=== PATIENT | male | born 1990 | race Caucasian/White ===

== ENCOUNTER 2019-01-18 10:31 | Emergency (ER) | payer MEDICAID, SELFPAY ==
[2019-01-18 10:36] VITALS: BP 129/80; PULSE 96; RESP 16; TEMP 36.7; O2SAT 96
--- NOTE | 2019-01-18 10:57 | DI.US_ITS ---
SYMPTOMS/DIAGNOSIS: CALF PAIN, LONG CAR RIDE RECENTLY RIGHT LOWER EXTREMITY ULTRASOUND: The deep veins of the right lower extremity were evaluated sonographically. They show normal compression, augmentation and color flow. There is no evidence of deep venous thrombus in the right lower extremity. The saphenofemoral joint appears unremarkable. The soft tissues of the calf are unremarkable. IMPRESSION: No evidence of a right lower extremity deep venous.
[2019-01-18 11:12] VITALS: PULSE 87; RESP 13
[2019-01-18 11:15] VITALS: BP 122/81; PULSE 86; PULSE 88; RESP 20
[2019-01-18 11:27] LABS: Abs Immature Grans 0.01 k/cumm (0.0-0.09); Absolute Basophil Count 0.02 k/cumm (0.0-0.2); Absolute Eosinophil Count 0.19 k/cumm (0.0-0.7); Absolute Lymphocyte Count 1.74 k/cumm (1.2-3.4); Absolute Monocyte Count 0.66 k/cumm (0.11-0.7); Absolute Neutrophil Count 2.72 k/cumm (1.2-6.7); Basophils % 0.4; Eosinophils % 3.6; HCT 45.7 % (40.0-50.0); HGB 15.7 g/dL (13.5-17.5); Immature Grans % 0.2; Lymphocytes % 32.6; Mean Corp. HGB Concentration 34.4 g/dL (32.0-36.0); Mean Corpuscular Hemoglobin 28.9 pg (27.0-33.0); Mean Corpuscular Volume 84.2 fL (80-95); Mean Platelet Volume 10.5 fL (8.0-11.0); Monocytes % 12.4; Neutrophils % 50.8; Platelet Count 219 x1000/uL (130-400); RBC 5.43 m/cumm (4.50-6.00); RBC Distribution Width 13.5 % (11.8-14.1); White Blood Cell Count 5.34 k/cumm (4.4-10.8)
[2019-01-18] MEDS: Ketorolac 30 MG/ML VIAL IVP (11:30)
[2019-01-18 11:43] LABS: ALT 40 U/L (12-78); AST 31 U/L (15-37); Albumin 3.8 g/dL (3.4-5.0); Alkaline Phosphatase 68 U/L (46-116); Anion Gap 7.8 mmol/L (3-11); BUN 24 mg/dL (7-18); Bilirubin, Total 0.6 mg/dL (0.2-1.0); CO2 28.2 mmol/L (21.0-32.0); CREATININE 0.86 mg/dL (0.70-1.30); Calcium 8.7 mg/dL (8.5-10.1); Chloride 102 mmol/L (98-107); Glucose 102 mg/dL (70-100); Sodium 138 mmol/L (136-145); Total Protein 7.2 g/dL (6.4-8.2)
--- NOTE | 2019-01-18 13:43 | W.ED.GENAD ---
Discharge Plan Disposition Patient Disposition: HOME Condition: Stable Discharge Details Chief Complaint: Orthopedic Clinical Impression: Muscle cramping Primary Care Provider: Bel Nix ED Provider: Chalo Real Home Meds and New Rx's Prescriptions: Continued ibuprofen 800 MG tablet 800 mg PO DIRECTED PRNRF: 0 buprenorphine-naloxone [Suboxone] 1 EACH film 12 mg PO DAILY RF: 0 dextroamphetamine-amphetamine [Adderall XR] 25 MG capsule,extended release 24hr 30 mg PO DAILY RF: 0 Discharge Instructions Instructions: Leg Cramps (ED) Additional Instructions: Please stay well-hydrated and you may use electrolyte replacement drinks while working in the heat. Feel free to return to the emergency department for any new or significant worsening of symptoms otherwise you may continue to take [id number] pain medication as needed. If not improving please feel free to follow-up with primary care provider for reassessment. Stand Alone Forms: Work Release Referrals: Bel Nix [Primary Care Provider] - (As needed for reassessment) Discharge Data Discharge Date/Time-TO BE ENTERED AT DEPARTURE: 01/18/19 14:16 Medical Decision Making Patient presenting the emergency department for chief complaint of right calf pain. 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 He associates this with a severe muscle cramp but pain is continued and been slightly improved but remains persistent. He does state some mild cramping of the left calf that has fully resolved. Physical exam shows tenderness to the right calf, no significant swelling, appropriate range of motion, appropriate vascular exam, no other abnormalities noted patient denies any other symptoms. Plan to check labs and ultrasound for rule out of DVT. Review of labs shows unremarkable CBC, CMP, show slightly elevated BUN otherwise nondiagnostic and magnesium also within limits. Review of preliminary report from commercial kitchen service technician shows negative for DVT. Patient reassessed and states slight improvement after ketorolac Given this I feel that patient potentially had severe muscle cramp or spasm that is causing continued discomfort. Patient was encouraged to stay well-hydrated, rest over the weekend, and return for any new or worsening symptoms otherwise use electrolyte replacement drinks while working in the heat. Return precautions discussed. After discussion of diagnosis and plan of care patient has no further needs, questions, or concerns and states clear understanding to return to the emergency department for any worsening symptoms. HPI General Mode of arrival: ambulatory. Date/Time Provider Initiated Documentation: 01/18/19 10:50. Limitations to Documentation: no limitations. Information obtained by: patient and RN notes reviewed. History of Present Illness 28 year old M presents to the emergency department with the chief complaint of right calf pain, described as moderate, with intensity rated at 8. Quality is described as aching and sharp, and is localized to the right and lower extremity. Patient started experiencing this day(s) (3) and it has been constant. Rest improves symptom(s), Movement worsens symptoms . Patient notes no other symptoms.. Patient did receive the following treatments prior to arrival, NSAID Related Data Home Medications Medication Instructions Recorded Confirmed buprenorphine-naloxone [Suboxone] 12 mg PO DAILY 06/11/14 01/18/19 ibuprofen 800 mg PO DIRECTED PRN 06/11/14 01/18/19 dextroamphetamine-amphetamine 30 mg PO DAILY 10/01/14 01/18/19 [Adderall XR] Allergies Allergy/AdvReac Type Severity Reaction Status Date / Time lithium Allergy Mild Skin Rash Unverified 01/18/19 10:42 General Stated Complaint: Orthopedic MARTIN: 3 Review of Systems Constitutional Denies chills, Denies fever(s) and Denies headache(s) ENT Denies headache(s) Cardiovascular Denies chest pain, Denies irregular heart rhythm, Denies leg edema, Denies lightheadedness and Denies dyspnea Respiratory Denies dyspnea Gastrointestinal Denies abdominal pain Musculoskeletal Reports as per HPI Neurologic Denies headache(s) and Denies sensory deficit [facility] Social History Smoking/Tobacco Use Status: Current every day Alcohol Intake: never Drug use: Occasionally Substance use type: marijuana Details: marijuana once per week current sobriety from drugs Do you feel safe at home: Yes Do you feel safe in your relationship?: Yes Exam Const General: cooperative, healthy appearing, comfortable and no acute distress Orientation: alert, awake and oriented x3 Resp Effort & Inspection: normal respiratory effort and able to speak in complete sentences Auscultation: clear to auscultation bilaterally Cardio Rate: regular rate Rhythm: regular rhythm Heart Sounds: S1 normal and S2 normal Pulses: normal peripheral pulses Neuro General: alert, awake, oriented x3, moves all extremities and no focal motor deficits Extrem General: normal exam except as noted Right lower extremity: lower leg Details: normal to inspection, tenderness Location: of the posterior calf and no edema; no erythema, no localized swelling, no palpable cords, no abrasions, no deformity and no unusual warmth Course Vital Signs Temperature 36.7 C 01/18/19 10:36 Pulse 96 H 01/18/19 10:36 Respiratory Rate 16 01/18/19 10:36 Blood Pressure 129/80 01/18/19 10:36 Pulse Oximetry 96 01/18/19 10:36 Temperature 36.7 C 01/18/19 10:36 Temperature Source Skin 01/18/19 10:36 Pulse 86 01/18/19 11:15 Pulse 88 01/18/19 11:15 Respiratory Rate 20 01/18/19 11:15 Respiratory Effort 01/18/19 10:44 Blood Pressure 122/81 01/18/19 11:15 Blood Pressure Mean 90 01/18/19 11:15 Blood Pressure Position Sitting 01/18/19 10:36 Pulse Oximetry 96 01/18/19 10:36 Oxygen Delivery Method Room Air 01/18/19 10:36 Oxygen Flow Rate 0 01/18/19 10:36 Pain Level 8 01/18/19 11:30 Lab/Test Results Lab/Test Results: Laboratory Tests Range/Units 01/18/19 01/18/19 11:08 11:08 WBC (4.4-10.8) k/cumm 5.34 RBC (4.50-6.00) m/cumm 5.43 Hgb (13.5-17.5) g/dL 15.7 Hct (40.0-50.0) % 45.7 MCV (80-95) fL 84.2 MCH (27.0-33.0) pg 28.9 MCHC (32.0-36.0) g/dL 34.4 RDW (11.8-14.1) % 13.5 Plt Count (130-400) x1000/uL 219 MPV (8.0-11.0) fL 10.5 Immature Gran % 0.2 Neutrophils % 50.8 Lymphocytes % 32.6 Monocytes % 12.4 Eosinophils % 3.6 Basophils % 0.4 Absolute Neutrophils (1.2-6.7) k/cumm 2.72 Absolute Lymphocytes (1.2-3.4) k/cumm 1.74 Absolute Monocytes (0.11-0.7) k/cumm 0.66 Absolute Eosinophils (0.0-0.7) k/cumm 0.19 Absolute Basophils (0.0-0.2) k/cumm 0.02 Sodium (136-145) mmol/L 138 Potassium (3.5-5.1) mmol/L 4.0 Chloride (98-107) mmol/L 102 Carbon Dioxide (21.0-32.0) mmol/L 28.2 Anion Gap (3-11) mmol/L 7.8 BUN (7-18) mg/dL 24 H Creatinine (0.70-1.30) mg/dL 0.86 Estimated GFR/1.73 m2 (mL/min/1.73m2) >= 60.00 Glucose (70-100) mg/dL 102 H Calcium (8.5-10.1) mg/dL 8.7 Magnesium (1.8-2.4) mg/dL 2.0 Total Bilirubin (0.2-1.0) mg/dL 0.6 AST (15-37) U/L 31 ALT (12-78) U/L 40 Alkaline Phosphatase (46-116) U/L 68 Total Protein (6.4-8.2) g/dL 7.2 Albumin (3.4-5.0) g/dL 3.8
[2019-01-18 14:11] VITALS: BP 126/76; PULSE 68; RESP 16; TEMP 36.8; O2SAT 98
== END 2019-01-18 14:16 | disposition home or self-care (01) ==
PROVIDERS: Emergency Provider Nurse Practitioner Family; PCP Family Medicine
DX: R25.2 Cramp and spasm (principal)
CPT/HCPCS: 36415; 80053; 96374; 99284; 83735; 85025; 93971; J1885

== ENCOUNTER 2020-01-05 15:30 | Emergency (ER) | payer BC, MEDICAID, SELFPAY ==
[2020-01-05 15:38] VITALS: BP 146/78; PULSE 83; RESP 20; TEMP 36.5; O2SAT 97
--- NOTE | 2020-01-05 16:07 | ED.GENADUL_ITS ---
Discharge Plan Disposition Patient Disposition: HOME Condition: Stable Discharge Details Chief Complaint: Orthopedic Clinical Impression: Bilateral hand swelling Primary Care Provider: Bel Nix ED Provider: Yoseph Saldana Home Meds and New Rx's Prescriptions: Continued ibuprofen 800 MG tablet 800 mg PO DIRECTED PRNRF: 0 buprenorphine-naloxone [Suboxone] 1 EACH film 12 mg PO DAILY RF: 0 dextroamphetamine-amphetamine [Adderall XR] 25 MG capsule,extended release 24hr 30 mg PO DAILY RF: 0 Discharge Instructions Instructions: How to Stop Smoking (ED) Additional Instructions: Your blood pressure was mildly elevated today. Be sure to follow-up with your primary care physician. Rest over the next few days and avoid hot environments. Please contact your primary care physician to arrange follow-up. Return to the ER for any worsening or new concerning symptoms. Stand Alone Forms: Work Release Referrals: Bel Nix [Primary Care Provider] - Discharge Data Discharge Date/Time-TO BE ENTERED AT DEPARTURE: 01/05/20 17:20 Medical Decision Making 29-year-old male here with bilateral hand swelling right greater than left. Patient has been working with his hands in the heat. He has no lower extremity edema. No chest pain or shortness of breath. Creatinine was checked and normal. Urinalysis was reviewed and no protein noted. Patient does have mildly elevated blood pressure. I discussed this with him. I advised him to follow-up with his primary care physician. Patient was encouraged to rest, avoid heat and follow-up with his primary care physician. I did advise him to stop smoking. HPI General Mode of arrival: ambulatory . Date/Time Provider Initiated Documentation: 01/05/20 15:55 . Limitations to Documentation: no limitations . Information obtained by: patient . HPI Narrative: 29-year-old male here with chief complaint of bilateral hand swelling right greater than left. Swelling is mild. No modifiers. Patient has been working with his hands in the heat. He has no lower extremity edema. No associated chest pain or shortness of breath. Related Data Home Medications Medication Instructions Recorded Confirmed buprenorphine-naloxone [Suboxone] 12 mg PO DAILY 06/11/14 01/05/20 ibuprofen 800 mg PO DIRECTED PRN 06/11/14 01/05/20 dextroamphetamine-amphetamine 30 mg PO DAILY 10/01/14 01/05/20 [Adderall XR] Allergies Allergy/AdvReac Type Severity Reaction Status Date / Time lithium Allergy Mild Skin Rash Unverified 01/05/20 15:44 General Stated Complaint: Orthopedic MARTIN: 4 Review of Systems Constitutional Constitutional: Denies fever(s) Cardiovascular Cardiovascular: Denies chest pain and Denies dyspnea Respiratory Respiratory: Denies dyspnea Gastrointestinal Gastrointestinal: Denies abdominal pain Genitourinary Genitourinary: Denies hematuria, Denies difficulty urinating and Denies dysuria Comments: Normal urination Integumentary/Breasts Skin/Breast: Denies rash [facility] Social History Smoking/Tobacco Use Status: Current every day Alcohol Intake: never Drug use: Current Sobriety Substance use type: former substance user Details: marijuana once per week current sobriety from drugs Do you feel safe at home: Yes Do you feel safe in your relationship?: Yes Exam Const General: cooperative and no acute distress HENMT Mouth: moist mucous membranes Eyes Conjunctivae: normal conjunctivae Sclera: normal sclerae Resp Auscultation: clear to auscultation bilaterally, no rales, no rhonchi and no wheezes Cardio Jugular venous pressure: no JVD Rate: regular rate and not tachycardic Rhythm: regular rhythm GI Palpation: soft, not firm, no masses and nontender Skin General skin exam: no rashes or lesions noted Neuro General: patient alert, patient awake and tone normal Extrem General: edema Laterality: bilateral (Hands mild) and no pedal edema Right upper extremity: hand Details: normal capillary refill, neuromotor exam normal, neurosensory exam normal and vascular exam Details: radial pulse present Details: 2+; no tenderness and no unusual warmth Left upper extremity: hand Details: normal capillary refill, neuromotor exam normal, neurosensory exam normal and vascular exam Details: radial pulse present Details: 2+; no unusual warmth Course Vital Signs Vital signs: Vital Signs Temperature 36.5 C 01/05/20 15:38 Pulse 83 01/05/20 15:38 Respiratory Rate 20 01/05/20 15:38 Blood Pressure 146/78 H 01/05/20 15:38 Pulse Oximetry 97 01/05/20 15:38 Temperature 36.5 C 01/05/20 15:38 Temperature Source Skin 01/05/20 15:38 Pulse 83 01/05/20 15:38 Respiratory Rate 20 07/19/20 15:38 Respiratory Effort Non-Labored 01/05/20 15:41 Blood Pressure 146/78 H 01/05/20 15:38 Blood Pressure Position Sitting 01/05/20 15:38 Pulse Oximetry 97 01/05/20 15:38 Oxygen Delivery Method Room Air 01/05/20 15:38 Oxygen Flow Rate 0 01/05/20 15:38 Pain Level 7 01/05/20 15:38
[2020-01-05 16:35] LABS: Bilirubin Negative (Negative); Blood Negative (Negative); Clarity Clear (Clear); Glucose Negative (Negative); Ketones Negative (Negative); Leukocyte Esterase Negative (Negative); Nitrite Negative (Negative); Specific Gravity >= 1.030 (1.005-1.025); Urobilinogen 0.2 EU/dL (Up TO 0.2); pH 5.5 (5-8)
[2020-01-05 16:43] LABS: ALT 31 U/L (16-63); AST 24 U/L (15-37); Albumin 3.9 g/dL (3.4-5.0); Alkaline Phosphatase 65 U/L (46-116); Anion Gap 9.7 mmol/L (3-11); BUN 22 mg/dL (7-18); Bilirubin, Total 0.5 mg/dL (0.2-1.0); CO2 26.3 mmol/L (21.0-32.0); CREATININE 1.01 mg/dL (0.70-1.30); Calcium 8.9 mg/dL (8.5-10.1); Chloride 103 mmol/L (98-107); Glucose 99 mg/dL (74-106); Potassium 3.9 mmol/L (3.5-5.1); Sodium 139 mmol/L (136-145); Total Protein 7.1 g/dL (6.4-8.2)
== END 2020-01-05 17:20 | disposition home or self-care (01) ==
LOC: ER 19:16
PROVIDERS: Emergency Provider Student in an Organized Health Care Education/Training Program; PCP Family Medicine
DX: R60.0 Localized edema (principal); R03.0 Elevated blood-pressure reading, without diagnosis of hypertension
CPT/HCPCS: 36415; 80053; 99283; 81003

== ENCOUNTER 2022-04-06 16:56 | Outpatient (REF) | payer MEDICAID, SELFPAY ==
[2022-04-12 07:05] LABS: Fentanyl Interpretation Positive.; Fentanyl by LC-MS/MS Negative; Norfentanyl by LC-MS/MS 23.9 ng/mL
[2022-04-14 11:24] LABS: Buprenorphine 183.5 ng/mL (Cutoff: 5.0)
== END 2022-04-06 16:57 | disposition home or self-care (01) ==
LOC: NCHCN 16:56
PROVIDERS: PCP Family Medicine; Visit Provider Family Medicine
DX: R41.82 Altered mental status, unspecified (principal)
CPT/HCPCS: 80348; 80354

== ENCOUNTER → 2022-04-08 00:53 | Outpatient (CLI) | payer MEDICAID, SELFPAY ==
--- NOTE | 2022-04-08 | DI.CT_ITS ---
Exam(s) CT HEAD WO EXAM: CT HEAD WO CLINICAL HISTORY: ALTERED CONSCIOUSNESS, R41.82. The history here TECHNIQUE: Imaging Protocol: Axial computed tomography images with coronal and sagittal reformatted images were created and reviewed COMPARISON: No exams were available for comparison FINDINGS: There are no skull fractures. There is circumferential mucosal thickening in left maxillary sinus but without a fluid level therein. Remainder of the paranasal sinuses including frontal sinuses are eusebio ar, as are the mastoid air cells. There is no evidence of intracranial hemorrhage, mass effect, or shift of midline structures. There are no extra-axial fluid collections. The ventricles are not enlarged or shifted and there is no blo od within the ventricular system nor within the basal cisterns. IMPRESSION: No acute intracranial findings on this noninfused CT scan of the brain. Given the history here if clinically indicated follow-up MRI can be performed. Left maxillary sinus disease as described above. RADIATION DOSE DELIVERED: 860.97mGy.cm Total DLP DATA REPOSITORY: All CT scans at this facility are submitted to the National Radiology Data Registry (NRDR) Dose Index Registry (DIR) with the [employer] (A[employer]). RADIATION OPTIMIZATION: All CT scans at this facility use at least one of these dose optimization te chniques: automated exposure control; mA and/or kV adjustment per patient size (includes targeted exa ms where dose is matched to clinical indication); or iterative reconstruction.
== END ==
PROVIDERS: PCP Family Medicine; Visit Provider Family Medicine
DX: R41.82 Altered mental status, unspecified (principal)
CPT/HCPCS: 70450

== ENCOUNTER 2022-04-11 03:27 | Outpatient (CLI) | payer MEDICAID, SELFPAY ==
[2022-04-11 15:53] LABS: HCT 48.3 % (40.0-50.0); HGB 16.6 g/dL (13.5-17.5); MCH 29.9 pg (27.0-33.0); MCHC 34.4 % (32.0-36.0); MCV 87 fL (80-95); MPV 9.5 fL (8.0-11.0); Platelet Count 245 10^3/uL (130-400); RBC 5.55 10^6/uL (4.36-5.78); RDW 12.5 % (11.8-14.1); RDW-SD 39.8 fL; WBC 10.59 10^3/uL (4.4-10.8)
[2022-04-11 16:30] LABS: ALT 30 U/L (16-63); AST 20 U/L (15-37); Albumin 4.2 g/dL (3.4-5.0); Alkaline Phosphatase 66 U/L (46-116); Anion Gap 8.7 mmol/L (3-11); BUN 20 mg/dL (7-18); Bilirubin, Total 0.4 mg/dL (0.2-1.0); CO2 27.3 mmol/L (21.0-32.0); CREATININE 1.1 mg/dL (0.70-1.30); Chloride 103 mmol/L (98-107); Glucose 119 mg/dL (74-106); Potassium 3.7 mmol/L (3.5-5.1); Sodium 139 mmol/L (136-145); Total Protein 7.7 g/dL (6.4-8.2)
== END 2022-04-11 03:28 | disposition home or self-care (01) ==
LOC: LBO 03:28
PROVIDERS: PCP Family Medicine; Visit Provider Family Medicine
DX: R41.82 Altered mental status, unspecified (principal)
CPT/HCPCS: 36415; 80053; 85027

== ENCOUNTER 2022-05-13 21:06 | Emergency (ER) | payer MEDICAID, SELFPAY ==
[2022-05-13 21:09] VITALS: BP 150/88; PULSE 100; RESP 18; TEMP 36.8; O2SAT 98
--- NOTE | 2022-05-13 21:22 | DI.RAD_ITS ---
Exam(s) XR ANKLE LT COMPLETE EXAM: XR ANKLE LT COMPLETE CLINICAL HISTORY: Swelling TECHNIQUE: 2D digital imaging was performed. Three views. COMPARISON: No exams were available for comparison FINDINGS: BONES: No acute fracture is present. No bony destructive lesion is seen. JOINTS:The ankle mortise is normally aligned. SOFT TISSUE: Swelling. No foreign body. IMPRESSION: Unremarkable radiographs of the left ankle. DATA REPOSITORY: RADIATION DOSE DELIVERED:
--- NOTE | 2022-05-13 21:43 | W.ED.GENAD ---
Discharge Plan Disposition Patient Disposition: Home Condition: Stable Discharge Details Clinical Impression: Leg swelling Primary Care Provider: Isaac Aviles ED Provider: Alondra Riddle Home Meds and New Rx's Prescriptions: No Action ibuprofen 800 MG tablet 800 mg PO DIRECTED PRN buprenorphine-naloxone [Suboxone] 1 EACH film 12 mg PO DAILY dextroamphetamine-amphetamine [Adderall XR] 25 MG capsule,extended release 24hr 30 mg PO DAILY Discharge Instructions Instructions: Leg Edema (ED) Additional Instructions: X-ray is within normal limits. Labs are also within normal limits. Please call Monday morning to schedule a Doppler of your leg to rule out a blood clot. Please be seen sooner if any worsening in swelling, redness, fever chills or signs of infection. Return to the ER for any shortness of breath or concerns. Please take Tylenol or Ibuprofen with food every 4-6 hours as needed for pain and swelling. Follow up with primary care provider in 3-5 days. Return to ED sooner if any worsening or concerns. Increase oral fluids. Referrals: Isaac Aviles MD [Primary Care Provider] - 3 days Medical Decision Making 31-year-old female presents to the ER with chief complaint of left lower leg swelling which he noticed worsening over the last couple of days. He states that he has been walking a lot he has no known injury. He denies any fever chills. CBC, CMP and D-dimer are ordered. Differential diagnosis includes but not limited. Cellulitis, underlying injury, DVT. I do recommend the patient gets an ultrasound as an outpatient to rule out DVT. CBC, CMP, D-dimer all within normal limits. X-ray also negative. I did order patient Doppler to rule out DVT instructed patient on follow-up he verbalized understanding. I did discuss strict return instructions for any worsening erythema swelling fever chills he verbalized understanding. This text was generated using [employer] dictation system, please disregard any oddities of phrase or misspellings. Imaging Data Radiologic Study: Imaging: X-Ray Radiologist's impression: COMPARISON: No relevant prior studies available. FINDINGS: Bones/joints: There is no evidence of acute fracture.There is no evidence of malalignment or dislocation. Soft tissues: Normal. IMPRESSION: There is no evidence of acute fracture.There is no evidence of malalignment or dislocation. Thank you for allowing us to participate in the care of your patient. Dictated and Authenticated by: Meghan Becerril MD Sign Out No HPI General Mode of arrival: ambulatory. Date/Time Provider Initiated Documentation: 05/13/22 21:22. Limitations to Documentation: no limitations. Information obtained by: patient, RN notes reviewed and old records reviewed. HPI Narrative: 31-year-old female presents to the ER with chief complaint of left lower leg swelling which he noticed worsening over the last couple of days. He states that he has been walking a lot he has no known injury. He denies any fever chills. His leg does appear somewhat erythematous, positive Homans' sign, no calf pain. He has a past medical history of ADD, chronic lower back pain and opioid dependence. He does take Suboxone and Adderall on regular basis. Related Data Home Medications Medication Instructions Recorded Confirmed buprenorphine 2 mg-naloxone 0.5 mg 12 mg PO DAILY 06/11/14 01/05/20 sublingual film (Suboxone) ibuprofen 800 mg tablet 800 mg PO DIRECTED PRN 06/11/14 01/05/20 dextroamphetamine-amphetamine ER 30 mg PO DAILY 10/01/14 01/05/20 25 mg 24hr capsule,extend release (Adderall XR) Allergies Allergy/AdvReac Type Severity Reaction Status Date / Time lithium Allergy Mild Skin Rash Unverified 01/05/20 15:44 General Stated Complaint: Orthopedic MARTIN: 4 Review of Systems All systems reviewed & are unremarkable except as noted in HPI and below Musculoskeletal Musculoskeletal: Reports as per HPI Integumentary/Breasts Skin/Breast: Reports skin swelling PFSH All Active Problems (Updated 05/13/22 @ 22:38 by Alondra Riddle NP) Leg swelling (Acute) Medical History ADD (attention deficit disorder) Altered consciousness Chronic lower back pain Headache Opioid dependence Social History Smoking/Tobacco Use Status: Current every day Smoking risk assessment performed?: Yes Alcohol Intake: never Drug use: Current Sobriety Substance use type: former substance user Details: marijuana once per week current sobriety from drugs Do you feel safe at home: Yes Do you feel safe in your relationship?: Yes Exam Extrem Left lower extremity: lower leg Details: erythema, localized swelling, warmth and other (Positive Homans sign) Upper/lower leg/hip images: 1. Erythema and swelling Course Vital Signs Vital signs: Vital Signs Temperature 36.8 C 05/13/22 21:09 Pulse 100 H 05/13/22 21:09 Respiratory Rate 18 05/13/22 21:09 Blood Pressure 150/88 H 05/13/22 21:09 Pulse Oximetry 98 05/13/22 21:09 Temperature 36.8 C 05/13/22 21:09 Pulse 100 H 05/13/22 21:09 Respiratory Rate 18 05/13/22 21:09 Respiratory Effort 05/13/22 21:11 Blood Pressure 150/88 H 05/13/22 21:09 Blood Pressure Position Supine 05/13/22 21:09 Pulse Oximetry 98 05/13/22 21:09 Oxygen Delivery Method Room Air 05/13/22 21:09 Oxygen Flow Rate 0 05/13/22 21:09 Pain Level 0 05/13/22 21:09
--- NOTE | 2022-05-13 21:51 | DI.VRAD_ITS ---
PROCEDURE INFORMATION: Exam: XR Left Ankle Exam date and time: 05/13/2022 9:31 PM Age: 31 years old Clinical indication: Swelling, leg or foot TECHNIQUE: Imaging protocol: Radiologic exam of the Left ankle. Views: 3 or more views. COMPARISON: No relevant prior studies available. FINDINGS: Bones/joints: There is no evidence of acute fracture.There is no evidence of malalignment or dislocation. Soft tissues: Normal. IMPRESSION: There is no evidence of acute fracture.There is no evidence of malalignment or dislocation. Dictated and Authenticated by: Meghan Becerril MD. Ordering:MARILIN Cantu MD
[2022-05-13 21:56] LABS: Abs Immature Grans 0.01 10^3/uL (0.0-0.06); Absolute Basophil Count 0.09 10^3/uL (0.0-0.2); Absolute Eosinophil Count 0.65 10^3/uL (0.0-0.7); Absolute Lymphocyte Count 1.83 10^3/uL (1.2-3.4); Absolute Monocyte Count 0.79 10^3/uL (0.1-0.8); Absolute Neutrophil Count 4.69 10^3/uL (1.2-6.7); Basophils % 1.1; Eosinophils % 8.1; HCT 49.6 % (40.0-50.0); HGB 16.7 g/dL (13.5-17.5); Immature Grans % 0.1; Lymphocytes % 22.7; MCH 29.4 pg (27.0-33.0); MCHC 33.7 % (32.0-36.0); MCV 87 fL (80-95); MPV 9.5 fL (8.0-11.0); Monocytes % 9.8; Neutrophils % 58.2; Platelet Count 276 10^3/uL (130-400); RBC 5.68 10^6/uL (4.36-5.78); RDW 12.1 % (11.8-14.1); WBC 8.06 10^3/uL (4.4-10.8)
[2022-05-13 22:10] LABS: ALT 41 U/L (16-63); AST 28 U/L (15-37); Alkaline Phosphatase 68 U/L (46-116); Anion Gap 5.7 mmol/L (3-11); BUN 17 mg/dL (7-18); Bilirubin, Total 0.3 mg/dL (0.2-1.0); CO2 30.3 mmol/L (21.0-32.0); CREATININE 1.2 mg/dL (0.70-1.30); Calcium 8.7 mg/dL (8.5-10.1); Chloride 101 mmol/L (98-107); Estimated GFR 81.89 (mL/min/1.73m2); Glucose 96 mg/dL (74-106); Potassium 3.8 mmol/L (3.5-5.1); Sodium 137 mmol/L (136-145); Total Protein 7.7 g/dL (6.4-8.2)
[2022-05-13 22:25] LABS: D-Dimer 382 ng/mlFEU (<500)
== END 2022-05-13 22:50 | disposition home or self-care (01) ==
PROVIDERS: Emergency Provider Registered Nurse Emergency; PCP Family Medicine
DX: M79.89 Other specified soft tissue disorders (principal); L53.9 Erythematous condition, unspecified; F17.200 Nicotine dependence, unspecified, uncomplicated
CPT/HCPCS: 80053; 99283; 73610; 85025; 85379; 99282

== ENCOUNTER 2022-09-02 02:25 | Outpatient (CLI) | payer MEDICAID, SELFPAY ==
--- NOTE | 2022-09-08 07:59 | PDOC.EEG ---
Neurology EEG EEG: [facility] Department of Neurology LONG-TERM AMBULATORY EEG REPORT Date of Recordin09/02/22 at 15:37:09 to at 08:10:14 Interpreting Physician: Dr. Mishel Clark PCP/Referring Provider: Dr. sIaac Aviles Reason for study: Alex Torres is a 32 year-old with nocturnal spells concerning for parasomnias vs seizures. Current Medications: Home Medications Medication Instructions Recorded Confirmed Type buprenorphine 2 mg-naloxone 0.5 mg 12 mg PO DAILY 06/11/14 08/29/22 History sublingual film (Suboxone) ibuprofen 800 mg tablet 800 mg PO DIRECTED PRN 06/11/14 08/29/22 History dextroamphetamine-amphetamine ER 30 mg PO DAILY 10/01/14 08/29/22 History 25 mg 24hr capsule,extend release (Adderall XR) METHODS: An 18-channel digitized electroencephalogram was recorded in the ambulatory setting with video. The 10/20 international system of electrode placement was used and bipolar and referential electrode montages were recorded. In addition to EEG the patient was monitored for EKG and by video. Activation procedures of photic stimulation and hyperventilation were performed if applicable. The duration of the recording was ~16.5 hours. DESCRIPTION OF EEG: Waking background activity: During maximal wakefulness a 9-Hz posterior background rhythm was present which was well-modulated, symmetrical, reactive to eye opening, and of moderate voltage. Faster frequencies were present in the bilateral anterior head regions. There was a normal anterior-posterior voltage gradient. Drowsy and sleeping background activity: During drowsiness, there was attenuation of the posterior dominant background rhythm and vertex waves. Normal stage II and III sleep was present with symmetrical sleep spindles, K-complexes, and vertex waves with slowing of the background rhythm to delta/theta frequencies. REM sleep manifested by rapid lateral eye movements and faster background rhythms was recorded. Arousal was unremarkable. Please note that only about 1 hour of sleep time was recorded which occurred at the very end of the recording. Interictal abnormalities: none. Ictal findings: No events were recorded. Activating Procedures: Photic stimulation was stopped by the patient and thus not performed. Hyperventilation was performed with moderate effort and produced mild physiological slowing of the background. EKG: EKG was disconnected throughout the majority of the recording. . INTERPRETATION: This long-term EEG is normal during the recording. Less than 1 hour sleep was recorded. No events captured. PRIOR EEG: none CLINICAL CORRELATION: No focal regions of cerebral dysfunction or epileptiform activity was present. Minimal sleep was recorded during the study which reduces the sensitivity of the exam. Epilepsy remains a clinical diagnosis and a normal EEG does not rule out epilepsy. Clinical correlation is advised. Mishel Clark MD
== END 2022-09-02 02:26 | disposition home or self-care (01) ==
LOC: RT 02:26
PROVIDERS: PCP Family Medicine; Visit Provider Psychiatry & Neurology Neurology
DX: R41.840 Attention and concentration deficit (principal); R68.89 Other general symptoms and signs
CPT/HCPCS: 95714

== ENCOUNTER 2022-09-26 19:38 | Emergency (ER) | payer MEDICAID, SELFPAY ==
[2022-09-26 19:48] VITALS: BP 148/73; PULSE 87; RESP 20; TEMP 37.2; O2SAT 97
--- NOTE | 2022-09-26 19:58 | NUR.NOTE ---
Nursing Note: went out to call pt back and pt not in waiting room
== END 2022-09-26 20:34 ==
PROVIDERS: Emergency Provider Physician Assistant; PCP Family Medicine
DX: Z53.21 Procedure and treatment not carried out due to patient leaving prior to being seen by health care provider (principal)

== ENCOUNTER 2022-10-31 16:54 | Emergency (ER) | payer MEDICAID, SELFPAY ==
[2022-10-31 16:59] VITALS: BP 134/76; PULSE 83; RESP 20; TEMP 37.1; O2SAT 97
--- NOTE | 2022-10-31 17:45 | DI.RAD_ITS ---
Exam(s) XR CHEST 2V PA LATERAL EXAM: XR CHEST 2V PA LATERAL CLINICAL HISTORY: erythema nodosum TECHNIQUE: 2D digital imaging was performed of the chest. Two images were obtained. PA and lateral views were obtained. COMPARISON: No exams were available for comparison FINDINGS: MEDIASTINUM: Normal. HEART: Normal. PULMONARY VASCULATURE: Normal. LUNGS: Mild peribronchial thickening is seen in the perihilar regions bilaterally. This can be seen with small airways disease. No focal consolidating infiltrates. PLEURAL SPACE: No pleural effusion or pneumothorax. BONE:Within normal limits for the patient's age. OTHER FINDINGS:Normal. IMPRESSION: Small airways disease. No focal consolidation. DATA REPOSITORY: RADIATION DOSE DELIVERED:
[2022-10-31 18:13] LABS: Abs Immature Grans 0.03 10^3/uL (0.0-0.06); Absolute Basophil Count 0.07 10^3/uL (0.0-0.2); Absolute Eosinophil Count 1.18 10^3/uL (0.0-0.7); Absolute Lymphocyte Count 1.85 10^3/uL (1.2-3.4); Absolute Monocyte Count 1.03 10^3/uL (0.1-0.8); Absolute Neutrophil Count 5.24 10^3/uL (1.2-6.7); Basophils % 0.7; Eosinophils % 12.6; HCT 49.2 % (40.0-50.0); HGB 17.1 g/dL (13.5-17.5); Immature Grans % 0.3; Lymphocytes % 19.7; MCH 28.9 pg (27.0-33.0); MCHC 34.8 % (32.0-36.0); MCV 83 fL (80-95); MPV 9.6 fL (8.0-11.0); Neutrophils % 55.7; Platelet Count 257 10^3/uL (130-400); RBC 5.92 10^6/uL (4.36-5.78); RDW 12.4 % (11.8-14.1); RDW-SD 37.6 fL
[2022-10-31 18:15] LABS: ESR 18 mm/hr (0-15)
[2022-10-31 18:33] LABS: ALT 36 U/L (16-63); AST 24 U/L (15-37); Alkaline Phosphatase 72 U/L (46-116); Anion Gap 7.2 mmol/L (3-11); BUN 16 mg/dL (7-18); Bilirubin, Total 0.4 mg/dL (0.2-1.0); C-Reactive Protein 1.21 mg/dL (0.0-0.3); CO2 27.8 mmol/L (21.0-32.0); CREATININE 1.1 mg/dL (0.70-1.30); Calcium 9.3 mg/dL (8.5-10.1); Chloride 104 mmol/L (98-107); Estimated GFR 90.34 (mL/min/1.73m2); Glucose 126 mg/dL (74-106); Potassium 3.7 mmol/L (3.5-5.1); Sodium 139 mmol/L (136-145); Total Protein 7.9 g/dL (6.4-8.2)
--- NOTE | 2022-10-31 19:00 | DI.VRAD_ITS ---
PROCEDURE INFORMATION: Exam: XR Chest Exam date and time: 10/31/2022 6:24 PM Age: 32 years old Clinical indication: Other: Erythema nodosum TECHNIQUE: Imaging protocol: Radiologic exam of the chest. Views: 2 views. COMPARISON: No relevant prior studies available. FINDINGS: Lungs: Peribronchial thickening. No consolidation. Pleural spaces: Unremarkable. No pleural effusion. No pneumothorax. Heart/Mediastinum: Unremarkable. No cardiomegaly. Bones/joints: Unremarkable. IMPRESSION: Small airways disease No focal consolidation Dictated and Authenticated by: Zay Bhardwaj MD. Ordering:GENEVIEVE Angel MD
--- NOTE | 2022-10-31 21:07 | ED.GENADUL_ITS ---
Discharge Plan Disposition Patient Disposition: Home Discharge Details Clinical Impression: Erythema nodosum Primary Care Provider: Isaac Aviles ED Provider: Jeanne Gonsales Home Meds and New Rx's Prescriptions: Continued ibuprofen 800 MG tablet 800 mg PO DIRECTED PRN buprenorphine-naloxone [Suboxone] 1 EACH film 12 mg PO DAILY Discharge Instructions Additional Instructions: Please follow-up with your primary care physician Your chest x-ray and labs do not show evidence of significant acute abnormality think you need more of a rheumatology work-up as your inflammatory markers are slightly elevated Take ibuprofen every 8 hours, 600 mg with food for the next several days Elevate your legs is much as possible Return earlier should you have new or worsening complaints including spreading redness, fever, worsening pain Referrals: Isaac Aviles MD [Primary Care Provider] - Discharge Data Discharge Date/Time-TO BE ENTERED AT DEPARTURE: 10/31/22 19:14 Medical Decision Making Patient presents with intermittent rash to lower extremity, concern for erythema nodosum Certainly infection is in the differential, no obvious evidence of tickborne illness Macrocytosis, afebrile, nontoxic Therefore CBC, CMP and CRP were ordered, mild elevation in CRP, may need rheumatological work-up in the outpatient setting, discussed this with patient Afebrile and nontoxic No indication for antibiotics at this time Ibuprofen patient encouraged Return precautions reviewed and patient expressed understanding HPI General Date/Time Provider Initiated Documentation: 10/31/22 17:07 . HPI Narrative: This 32-year-old male presents with report of rash in his left lower extremity that has had intermittently over the course of several months. States it is painful. Denies any new and upper respiratory symptoms or illnesses. States he has had intermittent bloody noses and has had this in the past but not so frequent as this past week. Denies any IV drug abuse but does use illicit drug use. Has a history of Suboxone use. Related Data Home Medications Medication Instructions Recorded Confirmed buprenorphine 2 mg-naloxone 0.5 mg 12 mg PO DAILY 06/11/14 10/31/22 sublingual film (Suboxone) ibuprofen 800 mg tablet 800 mg PO DIRECTED PRN 06/11/14 10/31/22 Allergies Allergy/AdvReac Type Severity Reaction Status Date / Time lithium Allergy Mild Skin Rash Unverified 09/26/22 19:53 General Stated Complaint: RashLesion MARTIN: 4 PFSH All Active Problems (Updated 10/31/22 @ 19:09 by YENY Pozo) Erythema nodosum (Acute) Parasomnia (Acute) Abnormal ENT evaluation (Acute) Medical History ADD (attention deficit disorder) Chronic lower back pain Headache Opioid dependence Oppositional defiant disorder Polysubstance abuse Surgical History S/P tonsillectomy and adenoidectomy Social History Smoking/Tobacco Use Status: Current every day Tobacco Type: cigarettes Smoking packs per day: 1 Smoking cigarettes per day: 20.0 Smoking risk assessment performed?: Yes Alcohol Intake: never Drug use: Daily Substance use type: opiates Details: marijuana once per week current sobriety from drugs Household members: significant other and family Number of Children: 1 current occupation: Unemployed Do you feel safe at home: Yes Do you feel safe in your relationship?: Yes Exam Narrative Exam Narrative: Patient is calm and cooperative, he has 2 small nodules 1 on the tibial aspect of his left lower leg and 1 on the fibular aspect, distal leg, neurovascularly intact, and tenderness to palpation, no lymphangitis, no crepitus, Course Vital Signs Vital signs: Vital Signs Temperature 37.1 C 10/31/22 16:59 Pulse 83 10/31/22 16:59 Respiratory Rate 20 10/31/22 16:59 Blood Pressure 134/76 10/31/22 16:59 Pulse Oximetry 97 10/31/22 16:59 Temperature 37.1 C 10/31/22 16:59 Temperature Source Tympanic 10/31/22 16:59 Pulse 83 10/31/22 16:59 Respiratory Rate 20 10/31/22 16:59 Respiratory Effort Normal, Non-Labored 10/31/22 17:07 Blood Pressure 134/76 10/31/22 16:59 Blood Pressure Position Sitting 10/31/22 16:59 Pulse Oximetry 97 10/31/22 16:59 Pain Level 2 10/31/22 16:59 Lab/Test Results Lab/Test Results: Laboratory Tests Range/Units 10/31/22 10/31/22 10/31/22 18:04 18:04 18:04 WBC (4.4-10.8) 10^3/uL 9.40 RBC (4.36-5.78) 10^6/uL 5.92 H Hgb (13.5-17.5) g/dL 17.1 Hct (40.0-50.0) % 49.2 MCV (80-95) fL 83 MCH (27.0-33.0) pg 28.9 MCHC (32.0-36.0) % 34.8 RDW (11.8-14.1) % 12.4 Plt Count (130-400) 10^3/uL 257 MPV (8.0-11.0) fL 9.6 Immature Gran % 0.3 Neutrophils % 55.7 Lymphocytes % 19.7 Monocytes % 11.0 Eosinophils % 12.6 Basophils % 0.7 Nucleated RBC % (0.0-0.3) % 0.0 Absolute Neutrophils (1.2-6.7) 10^3/uL 5.24 Absolute Lymphocytes (1.2-3.4) 10^3/uL 1.85 Absolute Monocytes (0.1-0.8) 10^3/uL 1.03 H Absolute Eosinophils (0.0-0.7) 10^3/uL 1.18 H Absolute Basophils (0.0-0.2) 10^3/uL 0.07 ESR (0-15) mm/hr 18 H Sodium (136-145) mmol/L 139 Potassium (3.5-5.1) mmol/L 3.7 Chloride (98-107) mmol/L 104 Carbon Dioxide (21.0-32.0) mmol/L 27.8 Anion Gap (3-11) mmol/L 7.2 BUN (7-18) mg/dL 16 Creatinine (0.70-1.30) mg/dL 1.1 Est GFR (CKD-EPI 2020) (mL/min/1.73m2) 90.34 Glucose (74-106) mg/dL 126 H Calcium (8.5-10.1) mg/dL 9.3 Total Bilirubin (0.2-1.0) mg/dL 0.4 AST (15-37) U/L 24 ALT (16-63) U/L 36 Alkaline Phosphatase (46-116) U/L 72 C-Reactive Protein (0.0-0.3) mg/dL 1.21 H Total Protein (6.4-8.2) g/dL 7.9 Albumin (3.4-5.0) g/dL 4.0
[2022-11-03 10:20] LABS: Antistrep-O Titer 56 IU/mL (0 - 530)
== END 2022-10-31 19:14 | disposition home or self-care (01) ==
PROVIDERS: Emergency Provider Physician Assistant; PCP Family Medicine
DX: L52 Erythema nodosum (principal); F19.90 Other psychoactive substance use, unspecified, uncomplicated
CPT/HCPCS: 80053; 85652; 99283; 71046; 85025; 86060; 86140

== ENCOUNTER 2023-04-16 16:13 | Emergency (ER) | payer MEDICAID, SELFPAY ==
[2023-04-16 16:17] VITALS: BP 151/86; PULSE 93; RESP 16; TEMP 36.1; O2SAT 98
--- NOTE | 2023-04-16 16:34 | ED.GENADUL_ITS ---
Discharge Plan Disposition Patient Disposition: Home Discharge Details Clinical Impression: Abscess, dental Primary Care Provider: Bel Nix ED Provider: Jeanne Gonsales Home Meds and New Rx's Prescriptions: New clindamycin HCl [Cleocin HCl] 150 mg capsule 450 mg PO TID Qty: 90 0RF Continued ibuprofen 800 MG tablet 800 mg PO DIRECTED PRN buprenorphine-naloxone [Suboxone] 1 EACH film 12 mg PO DAILY Discharge Instructions Instructions: Dental Abscess (ED) Additional Instructions: Take the antibiotic as prescribed Take ibuprofen and Tylenol as needed for pain Please call the dentist tomorrow and let them know you have significant facial swelling with a likely dental abscess and are taking antibiotics Should you develop difficulty swallowing, fever, chills, difficulty swallowing, or inability to open your jaw you should be reevaluated Referrals: Bel Nix [Primary Care Provider] - Medical Decision Making 32-year-old gentleman presenting with left facial swelling and dental pain, starting today Suspect abscess to #12, no palpable fluctuance or drainable abscess noted, no evidence of significant deep space infection, specifically no evidence of Kennedy''s angina, no trismus, oropharynx patent, uvula midline Clindamycin 450 3 times daily for 10 days as ordered, list of dental resources excepting Medicaid supply Return precautions reviewed and patient expressed understanding HPI General Date/Time Provider Initiated Documentation: 04/16/23 16:13 . HPI Narrative: This 32-year-old male presents with facial swelling which started today several hours prior to arrival. States he has widespread dental fractures, denies specific trauma. Denies fever or chills, difficulty is breathing jaw, or difficulty swallowing. Related Data Home Medications Medication Instructions Recorded Confirmed buprenorphine 2 mg-naloxone 0.5 mg 12 mg PO DAILY 06/11/14 02/14/23 sublingual film (Suboxone) ibuprofen 800 mg tablet 800 mg PO DIRECTED PRN 06/11/14 02/14/23 clindamycin HCl 150 mg capsule 450 mg (3 x 150 mg) PO TID #90 caps 04/16/23 (Cleocin HCl) Previous Rx's Medication Instructions Recorded clindamycin HCl 150 mg capsule 450 mg (3 x 150 mg) PO TID #90 caps 04/16/23 (Cleocin HCl) Allergies Allergy/AdvReac Type Severity Reaction Status Date / Time lithium Allergy Mild Skin Rash Unverified 02/14/23 14:51 General Stated Complaint: DentalOral MARTIN: 4 PFSH All Active Problems (Updated 04/16/23 @ 16:32 by YENY Pozo) Abscess, dental (Acute) Insomnia (Acute) Parasomnia (Acute) Abnormal ENT evaluation (Acute) Medical History ADD (attention deficit disorder) Chronic lower back pain Headache Opioid dependence Oppositional defiant disorder Polysubstance abuse Surgical History S/P tonsillectomy and adenoidectomy Social History Smoking/Tobacco Use Status: Current every day Tobacco Type: cigarettes Smoking packs per day: 1 Smoking cigarettes per day: 20.0 Smoking risk assessment performed?: Yes Alcohol Intake: never Drug use: Daily Substance use type: opiates Details: marijuana once per week current sobriety from drugs Household members: significant other and family Number of Children: 1 current occupation: Unemployed Do you feel safe at home: Yes Do you feel safe in your relationship?: Yes Course Vital Signs Vital signs: Vital Signs Temperature 36.1 C L 04/16/23 16:17 Pulse 93 H 04/16/23 16:17 Respiratory Rate 16 04/16/23 16:17 Blood Pressure 151/86 H 04/16/23 16:17 Pulse Oximetry 98 04/16/23 16:17 Temperature 36.1 C L 04/16/23 16:17 Temperature Source Skin 04/16/23 16:17 Pulse 93 H 04/16/23 16:17 Respiratory Rate 16 04/16/23 16:17 Blood Pressure 151/86 H 04/16/23 16:17 Blood Pressure Position Sitting 04/16/23 16:17 Pulse Oximetry 98 04/16/23 16:17 Oxygen Delivery Method Room Air 04/16/23 16:17 Oxygen Flow Rate 0 04/16/23 16:17 Pain Level 7 04/16/23 16:17
[2023-04-16] MEDS: Clindamycin 150 MG CAP, 12 CAPS/BTL 450 MG PO (16:50)
== END 2023-04-16 16:40 | disposition home or self-care (01) ==
PROVIDERS: Emergency Provider Physician Assistant; PCP Family Medicine
DX: R68.84 Jaw pain (principal); K04.7 Periapical abscess without sinus
CPT/HCPCS: 99283; 99284

== ENCOUNTER 2023-04-17 02:07 | Emergency (ER) | payer MEDICAID, SELFPAY ==
[2023-04-17 02:09] VITALS: BP 166/106; PULSE 110; RESP 16; TEMP 35.7; O2SAT 97
--- NOTE | 2023-04-17 02:15 | DI.CT_ITS ---
Exam(s) CT NECK W EXAM: CT NECK W CLINICAL HISTORY: dental infect, left facial swelling neck TTP. TECHNIQUE: Imaging Protocol: Axial computed tomography images with coronal and sagittal reformatted images were created and reviewed CONTRAST MATERIAL: Intravenous: Omnipaque 350 Contrast volume:100 ml contrast COMPARISON: No exams were available for comparison FINDINGS: Parotids/submandibular/thyroid gland: Normal. Lymphadenopathy: There are scattered lymph nodes seen along the level one to level three all measuri ng less than 8 mm in short axis diameter which are physiologic in nature. Carotids/Jugular: No significant stenosis or dissection.. Soft tissues: Significant soft tissue swelling and inflammation on the left side of the face, greater anteriorly extending into the lip. No drainable abscess. The floor the mouth is unremarkable. The epiglottis and vocal cords are within normal limits. Lungs: Evaluation somewhat limited due to motion. Emphysematous changes present. Bones: Abnormal periapical lucencies involving the left upper premolar teeth. Some lucencies also no quinton on the right. Multiple prior tooth extractions. Multiple dental caries. Minimal degenerative changes of the cervical spine. Visualized portions of the brain and orbits: Unremarkable. Sinuses and mastoids: Opacification of the left frontal sinus several left ethmoid sinuses and signif icant mucous retention in the left maxillary sinus. IMPRESSION: Dental abscesses involving the left upper bicuspid teeth with significant surrounding inflammation a nd swelling. No drainable soft tissue abscess. RADIATION DOSE DELIVERED: Total DLP DATA REPOSITORY: All CT scans at this facility are submitted to the National Radiology Data Registry (NRDR) Dose Index Registry (DIR) with the [employer] ([employer]). RADIATION OPTIMIZATION: All CT scans at this facility use at least one of these dose optimization te chniques: automated exposure control; mA and/or kV adjustment per patient size (includes targeted exa ms where dose is matched to clinical indication); or iterative reconstruction.
--- NOTE | 2023-04-17 02:29 | ED.GENADUL_ITS ---
Discharge Plan Disposition Patient Disposition: Home Condition: Good Discharge Details Clinical Impression: Abscess, dental Primary Care Provider: Bel Nix ED Provider: Kalie Reinoso Home Meds and New Rx's Prescriptions: New amoxicillin-pot clavulanate [Augmentin XR] 1,000-62.5 mg tablet extended release 12 hr 1 tab PO BID 10 Days Qty: 20 0RF Continued ibuprofen 800 MG tablet 800 mg PO DIRECTED PRN buprenorphine-naloxone [Suboxone] 1 EACH film 12 mg PO DAILY Discontinued clindamycin HCl [Cleocin HCl] 150 mg capsule 450 mg PO TID Qty: 90 0RF Discharge Instructions Instructions: Dental Abscess (ED) Additional Instructions: Call a dentist and schedule an appointment to be seen TODAY Call your primary care doctor today to schedule an appointment to be seen within the next 48 hours to follow up on your visit today. Return to the emergency department for new or worsening symptoms- fever, new/different/worse pain, difficulty breathing or swallowing, severe neck pain, inability to open your mouth, or if you have any other concerns. Discharge Data Discharge Date/Time-TO BE ENTERED AT DEPARTURE: 04/17/23 04:24 Medical Decision Making 32yo male presenting with left sided dental pain and facial swelling. History from patient and [facility] record review. Symptoms started about 24 hours ago and have been worsening, evaluated in this ED yesterday evening and discharged on clindamycin with plan for dental followup today. Swelling has continued to increase. Pain is also worsening however had not taken any pain medications at home; states he does not have any. No systemic symptoms, no respiratory distress, no neck pain. Slightly tachycardiac on arrival to low 100's, vital signs otherwise reassuring. Suspect tachycardia may be 2/t untreated pain. Lower suspicion for sepsis. No clear abscess on exam, does have may dental carries and left cheek swelling, mild anterior left neck tenderness. Given return with worsening symptoms as well as tachycardia here, will further evaluate with labs and CT. Given tylenol, toradol for pain, IVFB, IV amp/sulfactam. Labs reviewed as below, CBC with mild leukocytosis, CMP reas suring with no acidosis and no elevated gap, lactate is normal. CT independently reviewed, no large facial abscess on my view, agree with radiology read below- multiple periapical dental abscesses, facial inflammation without abscess or air. Not concerning for deep space neck infection or nectrotizing soft tissue infection. On reassessment patient sleeping comfortably; awakened and reports pain has somewhat improved. Vital signs reassuring, not tachycardiac. With reassuring workup, remains appropriate for original plan of PO antibiotics and close dental followup. Will switch to amox/clav. The importance of seeing a dentist TODAY was stressed with the patient, as well as strict return precautions. Discharged home; discharge instructions including return precautions were reviewed with patient who verbalized understanding. All questions were answered and they are in full agreement with the plan. Imaging Data Radiologic Study: Imaging: CT Scan Radiologist's impression: IMPRESSION: 1. Multifocal periapical dental lucencies (# 11, 14, 22, and 30) with cortical breakthrough of #11 and #22, presumably periapical dental abscesses. There is substantial overlying dense inflammation of the mid to lower left face. No soft tissue gas. No abscess. 2. Left fronto ethmoid and left maxillary sinusitis. Lab Data Lab results reviewed: Yes I reviewed the patient's lab results. Labs: 04/17/23 02:40 Blood Blood Culture - Pending 04/17/23 02:26 Blood Blood Culture - Pending Laboratory Tests Range/Units 04/17/23 02:26 WBC (4.4-10.8) 10^3/uL 14.10 H RBC (4.36-5.78) 10^6/uL 6.11 H Hgb (13.5-17.5) g/dL 17.7 H Hct (40.0-50.0) % 51.6 H MCV (80-95) fL 85 MCH (27.0-33.0) pg 29.0 MCHC (32.0-36.0) % 34.3 RDW (11.8-14.1) % 12.4 Plt Count (130-400) 10^3/uL 249 MPV (8.0-11.0) fL 9.9 Immature Gran % 0.3 Neutrophils % 71.3 Lymphocytes % 13.3 Monocytes % 9.8 Eosinophils % 4.8 Basophils % 0.5 Nucleated RBC % (0.0-0.3) % 0.0 Absolute Neutrophils (1.2-6.7) 10^3/uL 10.05 H Absolute Lymphocytes (1.2-3.4) 10^3/uL 1.88 Absolute Monocytes (0.1-0.8) 10^3/uL 1.38 H Absolute Eosinophils (0.0-0.7) 10^3/uL 0.68 Absolute Basophils (0.0-0.2) 10^3/uL 0.07 VBG Lactate (0.6-1.4) mmol/L 1.0 Sodium (136-145) mmol/L 137 Potassium (3.5-5.1) mmol/L 3.8 Chloride (98-107) mmol/L 100 Carbon Dioxide (21.0-32.0) mmol/L 27.1 Anion Gap (3-11) mmol/L 9.9 BUN (7-18) mg/dL 11 Creatinine (0.70-1.30) mg/dL 1.0 Est GFR (CKD-EPI 2020) (mL/min/1.73m2) 101.28 Glucose (74-106) mg/dL 122 H Calcium (8.5-10.1) mg/dL 9.3 Total Bilirubin (0.2-1.0) mg/dL 0.9 AST (15-37) U/L 22 ALT (16-63) U/L 33 Alkaline Phosphatase (46-116) U/L 74 Total Protein (6.4-8.2) g/dL 8.3 H Albumin (3.4-5.0) g/dL 4.5 HPI General Mode of arrival: ambulatory . Date/Time Provider Initiated Documentation: 04/17/23 02:08 . Limitations to Documentation: no limitations . Information obtained by: patient . HPI Narrative: 32yo male presenting with left sided dental pain and facial swelling. Symptoms started about 24 hours ago and have been worsening. Evaluated in this ED yesterday evening and discharged on antibiotics with plan for dental followup today. Swelling has continued to increase. Pain is also worsening however had not taken any pain medications at home; states he does not have any. He is otherwise in his usual state of health with no fevers, chills, rash, nausea, vomiting, difficulty breathing, neck pain, neck swelling, change in phonation, difficulty with secretions, or other concerns. Related Data Home Medications Medication Instructions Recorded Confirmed buprenorphine 2 mg-naloxone 0.5 mg 12 mg PO DAILY 06/11/14 04/17/23 sublingual film (Suboxone) ibuprofen 800 mg tablet 800 mg PO DIRECTED PRN 06/11/14 04/17/23 amoxicillin-potassium clavulanate 1 tab PO BID 10 days #20 tabs 04/17/23 1,000 mg-62.5 mg tablet,ext.rel 12hr (Augmentin XR) Previous Rx's Medication Instructions Recorded amoxicillin-potassium clavulanate 1 tab PO BID 10 days #20 tabs 04/17/23 1,000 mg-62.5 mg tablet,ext.rel 12hr (Augmentin XR) Allergies Allergy/AdvReac Type Severity Reaction Status Date / Time lithium Allergy Mild Skin Rash Unverified 04/17/23 02:15 General Stated Complaint: DentalOral MARTIN: 4 Review of Systems Narrative: see HPI PFSH All Active Problems (Updated 04/17/23 @ 04:11 by Kalie Reinoso MD) Abscess, dental (Acute) Insomnia (Acute) Parasomnia (Acute) Abnormal ENT evaluation (Acute) Medical History ADD (attention deficit disorder) Chronic lower back pain Headache Opioid dependence Oppositional defiant disorder Polysubstance abuse Surgical History S/P tonsillectomy and adenoidectomy Social History Smoking/Tobacco Use Status: Current every day Tobacco Type: cigarettes Smoking packs per day: 1 Smoking cigarettes per day: 20.0 Smoking risk assessment performed?: Yes Alcohol Intake: never Drug use: Daily Substance use type: opiates Details: marijuana once per week current sobriety from drugs Household members: significant other and family Number of Children: 1 current occupation: Unemployed Do you feel safe at home: Yes Do you feel safe in your relationship?: Yes Exam Narrative Exam Narrative: General: Alert, well appearing, well nourished, in no acute distress. Head: Atraumatic. Left cheek swollen, no erythema. No palpable fluctuance. Neck: Trachea midline, Neck supple. Left anterior neck mildly TTP, no overlying erythema.; ENT: MMM. No oropharygeal lesions or exudate. Uvula midline. Multiple dental carries. No clear abscesses. Cardiac: RRR, no murmurs appreciated Resp: No respiratory distress. CTAB. Abd: Nondistended. Extremities: No deformities. No peripheral edema. Neurologic: GCS 15. Moves all extremities freely against gravity Course Vital Signs Vital signs: Vital Signs Temperature 35.7 C L 04/17/23 02:09 Pulse 110 H 04/17/23 02:09 Respiratory Rate 16 04/17/23 02:09 Blood Pressure 166/106 H 04/17/23 02:09 Pulse Oximetry 97 04/17/23 02:09 Temperature 35.7 C L 04/17/23 02:09 Temperature Source Temporal Artery Scan 04/17/23 02:09 Pulse 110 H 04/17/23 02:09 Respiratory Rate 16 04/17/23 02:09 Respiratory Effort Normal, Non-Labored 04/17/23 02:12 Blood Pressure 166/106 H 04/17/23 02:09 Blood Pressure Position Sitting 04/17/23 02:09 Pulse Oximetry 97 04/17/23 02:09 Oxygen Delivery Method Room Air 04/17/23 02:09 Oxygen Flow Rate 0 04/17/23 02:09 Pain Level 10 04/17/23 02:13 Lab/Test Results Lab/Test Results: 04/17/23 02:17 Blood Blood Culture - Pending 04/17/23 02:17 Blood Blood Culture - Pending
[2023-04-17 02:37] LABS: Abs Immature Grans 0.04 10^3/uL (0.0-0.06); Absolute Basophil Count 0.07 10^3/uL (0.0-0.2); Absolute Monocyte Count 1.38 10^3/uL (0.1-0.8); Basophils % 0.5; Eosinophils % 4.8; HCT 51.6 % (40.0-50.0); HGB 17.7 g/dL (13.5-17.5); Immature Grans % 0.3; Lymphocytes % 13.3; MCHC 34.3 % (32.0-36.0); MCV 85 fL (80-95); MPV 9.9 fL (8.0-11.0); Monocytes % 9.8; Neutrophils % 71.3; Platelet Count 249 10^3/uL (130-400); RBC 6.11 10^6/uL (4.36-5.78); RDW 12.4 % (11.8-14.1); RDW-SD 37.6 fL
[2023-04-17 02:39] LABS: Absolute Eosinophil Count 0.68 10^3/uL (0.0-0.7); Absolute Lymphocyte Count 1.88 10^3/uL (1.2-3.4); Absolute Neutrophil Count 10.05 10^3/uL (1.2-6.7)
[2023-04-17] MEDS: Normal Saline Flush 10 ML SYR IVP (02:40)
[2023-04-17] MEDS: Omnipaque 350 MG/ML 100 ML BTL IJ (02:41)
[2023-04-17] MEDS: Normal Saline - Diluent 50 ML VIAL IJ (02:42)
[2023-04-17] MEDS: Ketorolac 15 MG/ML VIAL IVP (02:43)
[2023-04-17] MEDS: ACETAMINOPHEN 1,000 MG/100 ML BTL 400 MG IVPB (02:43)
[2023-04-17] MEDS: Normal Saline 1,000 ML 1000 ML IV (02:43)
[2023-04-17] MEDS: AMPICILLIN/SULBACTAM 3 GM in Normal Saline 100 ML IVPB (02:43)
[2023-04-17 02:55] LABS: ALT 33 U/L (16-63); AST 22 U/L (15-37); Albumin 4.5 g/dL (3.4-5.0); Alkaline Phosphatase 74 U/L (46-116); Anion Gap 9.9 mmol/L (3-11); BUN 11 mg/dL (7-18); Bilirubin, Total 0.9 mg/dL (0.2-1.0); CO2 27.1 mmol/L (21.0-32.0); Calcium 9.3 mg/dL (8.5-10.1); Chloride 100 mmol/L (98-107); Estimated GFR 101.28 (mL/min/1.73m2); Glucose 122 mg/dL (74-106); Potassium 3.8 mmol/L (3.5-5.1); Sodium 137 mmol/L (136-145); Total Protein 8.3 g/dL (6.4-8.2)
--- NOTE | 2023-04-17 03:51 | DI.VRAD_ITS ---
PROCEDURE INFORMATION: Exam: CT Neck With Contrast Exam date and time: 04/17/2023 2:56 AM Age: 32 years old Clinical indication: Neck pain; Patient HX: Dental infect, left facial swelling neck ttp TECHNIQUE: Imaging protocol: Computed tomography of the neck with contrast. Radiation optimization: All CT scans at this facility use at least one of these dose optimization techniques: automated exposure control; mA and/or kV adjustment per patient size (includes targeted exams where dose is matched to clinical indication); or iterative reconstruction. Contrast material: OMNIPAQUE 350; Contrast volume: 100 ml; Contrast route: INTRAVENOUS (IV); COMPARISON: CT HEAD WO 04/08/2022 3:34 PM FINDINGS: Pharynx: Unremarkable. No significant tonsillar enlargement. Larynx: Unremarkable. Epiglottis is normal. Prevertebral and retropharyngeal spaces: Unremarkable. Salivary glands: Normal. Glands are normal in size. Thyroid: Normal. No enlarged or calcified nodules. Lymph nodes: Unremarkable. No lymphadenopathy. Trachea: Visualized trachea is unremarkable. Lungs: Unremarkable as visualized. Bones/joints: Multifocal periapical dental lucencies (# 11, 14, 22, and 30) with cortical breakthrough of #11 and #22, presumably periapical dental abscesses. There is substantial overlying dense inflammation of the mid to lower left face. No soft tissue gas. No abscess. Left fronto ethmoid and left maxillary sinusitis. Soft tissues: See Bones/joints finding. IMPRESSION: 1. Multifocal periapical dental lucencies (# 11, 14, 22, and 30) with cortical breakthrough of #11 and #22, presumably periapical dental abscesses. There is substantial overlying dense inflammation of the mid to lower left face. No soft tissue gas. No abscess. 2. Left fronto ethmoid and left maxillary sinusitis. Dictated and Authenticated by: Kam Gomez MD. Ordering:FEROZ Jade MD
[2023-04-17 04:23] VITALS: BP 166/106; PULSE 110; RESP 16; TEMP 35.7; O2SAT 97
[2023-04-17 04:24] VITALS: BP 142/77; PULSE 78; RESP 16; O2SAT 97
== END 2023-04-17 04:24 | disposition home or self-care (01) ==
PROVIDERS: Emergency Provider Student in an Organized Health Care Education/Training Program; PCP Family Medicine
DX: K04.7 Periapical abscess without sinus (principal)
CPT/HCPCS: 70491; 80053; 87040; 96361; 96365; 96375; 99285; 83605; 85025; J0131; J0295; J1885; J3490

== ENCOUNTER 2023-05-14 16:30 | Emergency (ER) | payer MEDICAID, SELFPAY ==
[2023-05-14 16:38] VITALS: BP 138/95; PULSE 92; RESP 18; TEMP 37; O2SAT 96
[2023-05-14] MEDS: Ketorolac 15 MG/ML VIAL IM (16:59)
[2023-05-14 17:01] VITALS: BP 144/101; PULSE 86
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
== END 2023-05-14 17:20 | disposition home or self-care (01) ==
PROVIDERS: Emergency Provider Emergency Medicine; PCP Family Medicine
DX: M79.642 Pain in left hand (principal); T23.252A Burn of second degree of left palm, initial encounter; X04.XXXA Exposure to ignition of highly flammable material, initial encounter; F17.200 Nicotine dependence, unspecified, uncomplicated
CPT/HCPCS: 99283; J1885

== ENCOUNTER 2024-10-25 19:12 | Emergency (ER) | payer MEDICAID, SELFPAY ==
[2024-10-25 19:16] VITALS: BP 131/83; PULSE 121; RESP 20; TEMP 36.6; O2SAT 98
[2024-10-25] MEDS: Sulfameth/Trimeth DS, 2 TABS/BTL 1 TAB PO (19:50)
[2024-10-25] MEDS: Acetaminophen 500 MG TAB 1000 MG PO (19:50)
[2024-10-25] MEDS: Sulfameth/Trimeth DS TAB 1 TAB PO (19:50)
--- NOTE | 2024-10-25 19:51 | ED.GENADUL_ITS ---
Discharge Plan Disposition Patient Disposition: Home Discharge Details Clinical Impression: Abscess, Polysubstance use disorder Primary Care Provider: Bel Nix ED Provider: Gerber Wyman Home Meds and New Rx's Prescriptions: New sulfamethoxazole-trimethoprim [Bactrim DS] 800-160 mg tablet 1 tab PO BID 6 Days Qty: 12 0RF No Action buprenorphine-naloxone [Suboxone] 1 EACH film 12 mg PO DAILY Discharge Instructions Instructions: Abscess Incision and Drainage Additional Instructions: Continue to take Bactrim for your infection. Your abscess was packed and this can be removed in about 3 days. If it falls out before then that is fine. Continue to wash the area with soap and water. You wanted to continue draining. If your redness swelling or pain worsens you develop fever chills or other symptoms please return to the emergency department for reevaluation. Please follow-up with the [facility] to restart your buprenorphine if this is something that you desire to do. HPI General Date/Time Provider Initiated Documentation: 10/25/24 19:13 . Limitations to Documentation: no limitations . Information obtained by: patient . HPI Narrative: 34-year-old gentleman with past medical history of polysubstance use presents for evaluation of a wound of his left posterior leg. He reports that it has been there for few days. He states that it is draining. He states it is painful and there is skin color change around it. He denies any fever. He reports that he is a fentanyl user and states that he wants to get back on buprenorphine and. He cannot tell me when his last fentanyl use was. He is also using alcohol and reports use today. Related Data Home Medications ?Medication ?Instructions ?Recorded ?Confirmed buprenorphine 2 mg-naloxone 0.5 mg 12 mg PO DAILY 06/11/14 10/25/24 sublingual film (Suboxone) sulfamethoxazole 800 1 tab PO BID 6 days #12 tabs 10/25/24 mg-trimethoprim 160 mg tablet (Bactrim DS) Previous Rx's ?Medication ?Instructions ?Recorded sulfamethoxazole 800 1 tab PO BID 6 days #12 tabs 10/25/24 mg-trimethoprim 160 mg tablet (Bactrim DS) Allergies Allergy/AdvReac Type Severity Reaction Status Date / Time lithium Allergy Mild Skin Rash Unverified 10/25/24 19:23 General Stated Complaint: Cellulitis MATRIN: 3 Exam Narrative Exam Narrative: Review of Systems: All systems reviewed & are unremarkable except as noted in HPI and below Well-developed, no acute distress Afebrile Mild tachycardia unlabored respiratory effort left posterior leg with a 5 x 3 area of induration, erythema and fluctuance. Course Vital Signs Vital signs: Vital Signs Temperature 36.6 C 10/25/24 19:16 Pulse 121 H 10/25/24 19:16 Respiratory Rate 20 10/25/24 19:16 Blood Pressure 131/83 10/25/24 19:16 Pulse Oximetry 98 10/25/24 19:16 Temperature 36.6 C 10/25/24 19:16 Temperature Source Oral 10/25/24 19:16 Pulse 121 H 10/25/24 19:16 Respiratory Rate 20 10/25/24 19:16 Blood Pressure 131/83 10/25/24 19:16 Blood Pressure Position Sitting 10/25/24 19:16 Pulse Oximetry 98 10/25/24 19:16 Oxygen Delivery Method Room Air 10/25/24 19:16 Oxygen Flow Rate 0 10/25/24 19:16 End Tidal Co2 7 10/25/24 19:16 Procedure Abscess Drainage Location of Exam: Lower extremity/left Indication: Abscess. Local anesthetic: Lidocaine 2% and with epi, Amount of Local Anesthetic Used (mL): 10. Sterility: Non Sterile. Procedure Prep: Hand hygiene, Surgical Mask and Alcohol. Technique used, incised with blade. Outcome: Sucessful Procedure Description/Note: incision and drainage performed with a fair amount of bloody purulent output put. Abscess pocket deloculated and irrigated with saline. Tolerated the procedure well, no complications. Medical Decision Making Emergent evaluation of abscess. Patient had evidence of abscess and cellulitis on examination. He has multiple areas consistent with's prior skin infections noted. He is a polysubstance user so suspicion for MRSA is high. The abscess was drained with a fair amount of purulent output. First dose of Bactrim given in the emergency department, he was provided with an additional day to take home as well as a prescription to complete 1 week of treatment. The patient was initially noted to be tachycardic but this improved in the emergency department. He is afebrile and I do not suspect a systemic infection or sepsis causing his tachycardia but suspect suspect it is more likely secondary to his polysubstance use as his drug paraphernalia fell out of his pocket during the examination. The patient was advised to follow-up with the [facility] if he wishes to pursue sobriety and medical help with that. Return precautions advised. Quality:SDOH Health Related Social Needs: No Data to Display PFSH All Active Problems (Updated 10/25/24 @ 19:42 by Gerber Wyman MD) Polysubstance use disorder (Acute) Abscess (Acute) Insomnia (Acute) Parasomnia (Acute) Abnormal ENT evaluation (Acute) Medical History ADD (attention deficit disorder) Chronic lower back pain Headache Opioid dependence Oppositional defiant disorder Polysubstance abuse Surgical History S/P tonsillectomy and adenoidectomy Social History Smoking/Tobacco Use Status: Current every day Tobacco Type: cigarettes Smoking packs per day: 1 Smoking cigarettes per day: 20.0 and smokeless tobacco Smoking risk assessment performed?: Yes Alcohol Intake: current Alcohol Intake frequency: holidays/special occasions only Alcohol type: hard liquor Drug use: Daily Substance use type: crack/cocaine, heroin, opiates, painkillers and IV drugs Household members: significant other and family Number of Children: 1 current occupation: Unemployed Do you feel safe at home: Yes Do you feel safe in your relationship?: Yes PAWSS Have you Been Recently Intoxicated or Drunk Within the Last 30 days?: Yes Have you Ever Experienced Previous Episodes of Alcohol Withdrawal?: No Have you ever Experienced Withdrawal Seizures?: No Have you ever Experienced Delirium Tremens(DT)s?: No Have you ever undergone Alcohol Rehabilitation Treatment (i.e, inpt ot outpatient treatment programs)?: No Have you ever Experienced Blackouts?: No Have you ever Combined Alcohol with other Downers within the last 90 days?: No Have you ever Combined Alcohol with any other Substance of Abuse during the last 90 days?: Yes Positive Blood Alcohol level on Presentation? [PCS.BAL]: Yes Evidence of Increased Autonomic Activity (i.e. HR>120, tremor, sweating, agitation, nausea)?: Yes Result: 5
[2024-10-25 19:54] VITALS: PULSE 106; O2SAT 100
== END 2024-10-25 20:02 | disposition home or self-care (01) ==
PROVIDERS: Emergency Provider Emergency Medicine; PCP Family Medicine
DX: L02.416 Cutaneous abscess of left lower limb (principal); F19.90 Other psychoactive substance use, unspecified, uncomplicated
CPT/HCPCS: 10061

== ENCOUNTER 2025-03-22 03:14 | Emergency (ER) | payer MEDICAID, SELFPAY ==
--- NOTE | 2025-03-22 03:23 | W.ED.GENAD ---
Discharge Plan Discharge Details Primary Care Provider: [facility] Nix ED Provider: Terrance Gamboa Home Meds and New Rx's Prescriptions: No Action buprenorphine-naloxone [Suboxone] 1 EACH film 12 mg PO DAILY HPI General Date/Time Provider Initiated Documentation: 03/22/25 03:23. Related Data Home Medications ?Medication ?Instructions ?Recorded ?Confirmed buprenorphine 2 mg-naloxone 0.5 mg 12 mg PO DAILY 06/11/14 10/25/24 sublingual film (Suboxone) Allergies Allergy/AdvReac Type Severity Reaction Status Date / Time lithium Allergy Mild Skin Rash Unverified 10/25/24 19:23 General MARTIN: 3 PFSH All Active Problems Insomnia (Acute) Parasomnia (Acute) Abnormal ENT evaluation (Acute) Medical History Polysubstance abuse Oppositional defiant disorder ADD (attention deficit disorder) Chronic lower back pain Headache Opioid dependence Surgical History S/P tonsillectomy and adenoidectomy Social History Smoking/Tobacco Use Status: Current every day Tobacco Type: cigarettes Smoking packs per day: 1 Smoking cigarettes per day: 20.0 and smokeless tobacco Smoking risk assessment performed?: Yes Alcohol Intake: current Alcohol Intake frequency: holidays/special occasions only Alcohol type: hard liquor Drug use: Daily Substance use type: crack/cocaine, heroin, opiates, painkillers and IV drugs Household members: significant other and family Number of Children: 1 current occupation: Unemployed Do you feel safe at home: Yes Do you feel safe in your relationship?: Yes
== END 2025-03-22 04:24 | disposition left against medical advice (07) ==
PROVIDERS: PCP Family Medicine
DX: Z53.21 Procedure and treatment not carried out due to patient leaving prior to being seen by health care provider (principal)